=== PATIENT | female | born 1930 | race Caucasian/White ===

== ENCOUNTER 2016-06-30 18:29 | Emergency (ER) | payer MEDICARE, BC ==
[2016-06-30 18:36] VITALS: BP 147/66
--- NOTE | 2016-06-30 18:48 | EDM.PDOC ---
ED HPI Trauma - General Chief Complaint: Lower Extremity Injury/Pain Stated Complaint: Fall, left hip pain Time Seen by Provider: 06/30/16 18:40 Source: Reports: Patient, RN notes reviewed History Limitations: Reports: No limitations - History of Present Illness INITIAL COMMENTS - FREE TEXT/NARRATIVE: 85 year old female presents to the ED via [facility] The patient had reportedly gotten up from her chair after supper and fell. She has no complaints of chest pain or dizziness at the time. She had no LOC. She complaints of left hip pain after the fall. [facility] was called and transported the patient. The patient is confused at baseline and is a poor historian. No additional history is available. Allergies/ADRs: Allergies No Known Allergies Allergy (Verified 06/30/16 18:30) Home Medications: Ambulatory Orders Furosemide 40 mg PO DAILY 11/20/15 [Confirmed 06/30/16] Multivitamin [Daily Multiple Vitamin] 1 tab PO DAILY 11/20/15 [Confirmed ] Omeprazole 20 mg PO DAILY 11/20/15 [Confirmed 06/30/16] Ondansetron HCl [Zofran] 4 mg PO QID PRN 11/20/15 [Confirmed 06/30/16] Potassium Chloride 10 meq PO TID 11/20/15 [Confirmed 06/30/16] Sennosides [Senna] 17.2 mg PO DAILY PRN 11/20/15 [Confirmed 06/30/16] Sertraline [Zoloft] 25 mg PO DAILY 11/20/15 [Confirmed 06/30/16] glipiZIDE [Glipizide ER] 2.5 mg PO DAILY 11/20/15 [Confirmed 06/30/16] Acetaminophen 650 mg PO TID 11/21/15 [Confirmed 06/30/16] Sertraline [Zoloft] 100 mg PO DAILY 12/12/15 [Confirmed 06/30/16] Donepezil [Aricept] 10 mg PO DAILY 06/30/16 [Confirmed 06/30/16] LORazepam [Ativan] 1 mg PO ACBREAKFAST 06/30/16 [Confirmed 06/30/16] Memantine [Namenda Xr] 14 mg PO DAILY 06/30/16 [Confirmed 06/30/16] Psyllium Seed (With Sugar) [Natural Fiber Lax Powder] 1 tsp PO DAILY 06/30/16 [ Confirmed 06/30/16] Past Medical History HEENT History: Reports: Other (see below) Other HEENT History: dysphagia Cardiovascular History: Reports: Blood clots/VTE/DVT Respiratory History: Reports: PE Gastrointestinal History: Reports: GI bleed Genitourinary History: Reports: Other (see below) Other Genitourinary History: nocturia [employer]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: Musculoskeletal History: Reports: Other (see below) Other Musculoskeletal History: unsteady gait, lack of coordination, transfers with [facility] at [facility] Neurological History: Reports: CVA Psychiatric History: Reports: Dementia, Depression Endocrine/Metabolic History: Reports: Diabetes, type II, Other (see below) Other Endocrine/Metabolic History: hyercalcemia Hematologic History: Reports: Anemia, Anticoagulation therapy Oncologic (Cancer) History: Reports: Colon - Infectious Disease History Infectious Disease History: Reports: Chicken pox - Past Surgical History HEENT Surgical History: Reports: Other (see below) Other HEENT Surgeries/Procedures: eye surgery Other Cardiovascular Surgeries/Procedures: filter placed in right upper thigh for clots GI Surgical History: Reports: Cholecystectomy, Colonoscopy, Colostomy Other GI Surgeries/Procedures: Partial large bowel removal, resectioned and colostomy closed Female Surgical History: Reports: Hysterectomy Neurological Surgical History: Reports: Other (see below) Other Neurological Surgeries/Procedures: surdural hematoma removed in 2013 Oncologic Surgical History: Reports: None Social & Family History - Family History Family Medical History: Noncontributory - Tobacco Use Smoking Status *Q: Never Smoker Second Hand Smoke Exposure: No - Caffeine Use Caffeine Use: Reports: None - Alcohol Use Days Per Week of Alcohol Use: 0 - Recreational Drug Use Recreational Drug Use: No Review of Systems - Review of Systems Review Of Systems: See Below Respiratory: Reports: No Symptoms. Denies: Shortness of Breath, Cough Cardiovascular: Reports: no symptoms. Denies: chest pain, syncope GI/Abdominal: Reports: No symptoms. Denies: Abdominal pain Musculoskeletal: Reports: joint pain Neurological: Reports: Confusion Trauma Exam - Physical Exam Exam: See Below Exam Limited By: No limitations General Appearance: Reports: alert, WD/WN, no apparent distress Head: Reports: atraumatic, normocephalic Eyes: bilateral eye: EOMI, PERRL Neck: Reports: non-tender, full range of motion, normal alignment, normal inspection Respiratory Exam: Reports: no respiratory distress, lungs clear Cardiovascular: Reports: regular rate, rhythm GI/Abdominal: Reports: normal bowel sounds, soft, non tender Back: Reports: full range of motion. Denies: vertebral tenderness Extremities: Reports: bony-point tenderness (left hip), pain with movement Neurologic: Reports: no motor/sensory deficits, alert, other (confused, hard of hearing ) Course - Vital Signs Last Recorded V/S: Last Vital Signs Temp 99.1 F 06/30/16 18:30 Pulse 70 06/30/16 18:30 Resp 28 H 06/30/16 18:30 BP 147/66 H 06/30/16 18:30 Pulse Ox 92 L 06/30/16 18:30 - Orders/Labs/Meds Orders: Active Orders 24 hr Category Date Time Status EKG 12 Lead [EKG Documentation Completion] [RC] STAT Care 06/30/16 19:28 Active Insert Urinary Catheter [OM.PC] Q24H Care 06/30/16 19:30 Ordered Urinary Catheter Assessment [RC] ASDIRECTED Care 06/30/16 19:28 Active Hip Min 2V or 3V w Pelvis Lt [CR] Stat Exams 06/30/16 18:47 Taken CULTURE URINE [RM] Stat Lab 06/30/16 21:13 Ordered Levofloxacin/Dextrose 5%-Water [Levaquin in D5W 750 MG/ Med 06/30/16 20:41 Active 150 ML] 750 mg Premix Bag 1 bag IV ONETIME Sodium Chloride 0.9% [Normal Saline] 1,000 ml Med 06/30/16 19:27 Active IV ONETIME Medication Orders Sodium Chloride (Normal Saline) 1,000 mls @ 75 mls/hr IV ONETIME ONE Stop: 07/01/16 08:46 Last Admin: 06/30/16 19:43 Dose: 75 mls/hr Levofloxacin/Dextrose 750 mg/ (Premix) 150 mls @ 100 mls/hr IV ONETIME ONE Stop: 06/30/16 22:10 Last Admin: 06/30/16 21:13 Dose: 100 mls/hr Labs: Laboratory Tests 06/30/16 06/30/16 06/30/16 Range/Units 19:35 19:35 19:35 WBC 9.46 (3.98-10.04) K/mm3 RBC 4.49 (3.98-5.22) M/mm3 Hgb 14.3 (11.2-15.7) gm/L Hct 44.1 (34.1-44.9) % MCV 98.2 H (79.4-94.8) fl MCH 31.8 (25.6-32.2) pg MCHC 32.4 (32.2-35.5) g/dl RDW Std Deviation 55.0 H (36.4-46.3) fL Plt Count 166 L (182-369) K/mm3 MPV 10.9 (9.4-12.3) fl Neut % (Auto) 90.6 H (34.0-71.1) % Lymph % (Auto) 3.1 L (19.3-51.7) % [place] % (Auto) 5.6 (4.7-12.5) % Eos % (Auto) 0.3 L (0.7-5.8) Baso % (Auto) 0.1 (0.1-1.2) % Neut # (Auto) 8.57 H (1.56-6.13) K/mm3 Lymph # (Auto) 0.29 L (1.18-3.74) K/mm3 [place] # (Auto) 0.53 H (0.24-0.36) K/mm3 Eos # (Auto) 0.03 L (0.04-0.36) K/mm3 Baso # (Auto) 0.01 (0.01-0.08) K/mm3 Manual Slide Review Abnormal smear Sodium 143 (136-145) mEq/L Potassium 4.0 (3.5-5.1) mEq/L Chloride 107 (98-107) mEq/L Carbon Dioxide 25 (21-32) mEq/L Anion Gap 15.0 (5-15) BUN 22 H (7-18) mg/dL Creatinine 1.0 (0.55-1.02) mg/dL Est Cr Clr Drug Dosing 34.87 mL/min Estimated GFR (MDRD) 53 (>60) mL/min BUN/Creatinine Ratio 22.0 H (14-18) Glucose 137 H (83-115) mg/dL Calcium 10.6 H (8.5-10.1) mg/dL Total Bilirubin 0.7 (0.2-1.0) mg/dL AST 46 H (15-37) U/L ALT 59 (14-59) U/L Alkaline Phosphatase 178 H (46-116) U/L Troponin I < 0.017 (0.00-0.056) ng/mL Total Protein 7.3 (6.4-8.2) g/dl Albumin 3.8 (3.4-5.0) g/dl Globulin 3.5 gm/dL Albumin/Globulin Ratio 1.1 (1-2) Urine Color (Yellow) Urine Appearance (Clear) Urine pH (5.0-8.0) Ur Specific [place] (1.005-1.030) Urine Protein (Negative) Urine Glucose (UA) (Negative) Urine Ketones (Negative) Urine Occult Blood (Negative) Urine Nitrite (Negative) Urine Bilirubin (Negative) Urine Urobilinogen (0.2-1.0) Ur Leukocyte Esterase (Negative) Urine RBC (0-5) /hpf Urine WBC (0-5) /hpf Urine WBC Clumps (NOT SEEN) /hpf Ur Epithelial Cells (0-5) /hpf Amorphous Sediment (NOT SEEN) /hpf Urine Bacteria (FEW) /hpf Fine Granular Casts (0-5) /lpf Urine Mucus (FEW) /hpf 06/30/16 Range/Units 19:56 WBC (3.98-10.04) K/mm3 RBC (3.98-5.22) M/mm3 Hgb (11.2-15.7) gm/L Hct (34.1-44.9) % MCV (79.4-94.8) fl MCH (25.6-32.2) pg MCHC (32.2-35.5) g/dl RDW Std Deviation (36.4-46.3) fL Plt Count (182-369) K/mm3 MPV (9.4-12.3) fl Neut % (Auto) (34.0-71.1) % Lymph % (Auto) (19.3-51.7) % [place] % (Auto) (4.7-12.5) % Eos % (Auto) (0.7-5.8) Baso % (Auto) (0.1-1.2) % Neut # (Auto) (1.56-6.13) K/mm3 Lymph # (Auto) (1.18-3.74) K/mm3 [place] # (Auto) (0.24-0.36) K/mm3 Eos # (Auto) (0.04-0.36) K/mm3 Baso # (Auto) (0.01-0.08) K/mm3 Manual Slide Review Sodium (136-145) mEq/L Potassium (3.5-5.1) mEq/L Chloride (98-107) mEq/L Carbon Dioxide (21-32) mEq/L Anion Gap (5-15) BUN (7-18) mg/dL Creatinine (0.55-1.02) mg/dL Est Cr Clr Drug Dosing mL/min Estimated GFR (MDRD) (>60) mL/min BUN/Creatinine Ratio (14-18) Glucose (83-115) mg/dL Calcium (8.5-10.1) mg/dL Total Bilirubin (0.2-1.0) mg/dL AST (15-37) U/L ALT (14-59) U/L Alkaline Phosphatase (46-116) U/L Troponin I (0.00-0.056) ng/mL Total Protein (6.4-8.2) g/dl Albumin (3.4-5.0) g/dl Globulin gm/dL Albumin/Globulin Ratio (1-2) Urine Color Dark yellow (Yellow) Urine Appearance Cloudy H (Clear) Urine pH 6.0 (5.0-8.0) Ur Specific [place] 1.025 (1.005-1.030) Urine Protein 1+ H (Negative) Urine Glucose (UA) Negative (Negative) Urine Ketones Negative (Negative) Urine Occult Blood 1+ H (Negative) Urine Nitrite Positive H (Negative) Urine Bilirubin Negative (Negative) Urine Urobilinogen 0.2 (0.2-1.0) Ur Leukocyte Esterase 1+ H (Negative) Urine RBC 5-10 H (0-5) /hpf Urine WBC >100 H (0-5) /hpf Urine WBC Clumps Moderate (NOT SEEN) /hpf Ur Epithelial Cells 0-5 (0-5) /hpf Amorphous Sediment Not seen (NOT SEEN) /hpf Urine Bacteria Many H (FEW) /hpf Fine Granular Casts 10-20 H (0-5) /lpf Urine Mucus Many H (FEW) /hpf Meds: Medications Generic Name Dose Route Start Last Admin Trade Name Freq PRN Reason Stop Dose Admin Sodium Chloride 1,000 mls @ 75 mls/hr 06/30/16 19:27 06/30/16 19:43 Normal Saline IV 07/01/16 08:46 75 mls/hr ONETIME ONE Administration Levofloxacin/Dextrose 750 mg/ 150 mls @ 100 mls/hr 06/30/16 20:41 06/30/16 21 :13 Premix IV 06/30/16 22:10 100 mls/hr ONETIME ONE Administration Discontinued Medications Generic Name Dose Route Start Last Admin Trade Name Freq PRN Reason Stop Dose Admin Hydromorphone HCl 0.5 mg 06/30/16 19:27 06/30/16 19:43 Dilaudid IVPUSH 06/30/16 19:28 0.5 mg ONETIME ONE Administration - Re-Assessments/Exams Free Text/Narrative Re-Assessment/Exam: Left hip x-ray reveals intratrochanteric facture. Transfer process initiated with [facility] as Grace is a [facility] and we do not have ortho services available today. Orthopedic Surgeon Dr. Webb and Hospitalist Dr. Hernandez have accepted care of the patient. Grewal cath and IV placed. Labs are pending. Will transfer patient once labs are complete EKG reveals SR 70 bpm. No acute ischemic changes. LVH pattern. EKG read by Dr. Becerra 06/30/16 20:41 CBC reveals a normal WBC. CMP reveals mildly elevated liver enzymes and BUN. Bilirubin is normal. Likely due to volume depletion. Cath UA positive for UTI. Urine culture added. Will start IV Levaquin in the ED. [facility] one call updated on lab findings. [facility] will transport patient. Departure - Departure Time of Disposition: 20:54 Disposition: DC/Tfer to Acute Hospital 02 Condition: good Clinical Impression: UTI (urinary tract infection) Qualifiers: Urinary tract infection type: acute cystitis Hematuria presence: without hematuria Qualified Code(s): N30.00 - Acute cystitis without hematuria Hip fracture, left Qualifiers: Encounter type: initial encounter Fracture type: closed Qualified Code(s): S72.002A - Fracture of unspecified part of neck of left femur, initial encounter for closed fracture Referrals: Karthikeyan Barraza MD [Primary Care Provider] - Forms: ED Department Discharge - My Orders Last 24 Hours: My Active Orders 06/30/16 18:47 Hip Min 2V or 3V w Pelvis Lt [CR] Stat 06/30/16 19:27 Sodium Chloride 0.9% [Normal Saline] 1,000 ml IV ONETIME 06/30/16 19:28 EKG 12 Lead [EKG Documentation Completion] [RC] STAT Urinary Catheter Assessment [RC] ASDIRECTED 06/30/16 19:30 Insert Urinary Catheter [OM.PC] Q24H 06/30/16 20:41 Levofloxacin/Dextrose 5%-Water [Levaquin in D5W 750 MG/150 ML] 750 mg Premix Bag 1 bag IV ONETIME 06/30/16 21:13 CULTURE URINE [RM] Stat - Assessment/Plan Last 24 Hours: My Active Orders 06/30/16 18:47 Hip Min 2V or 3V w Pelvis Lt [CR] Stat 06/30/16 19:27 Sodium Chloride 0.9% [Normal Saline] 1,000 ml IV ONETIME 06/30/16 19:28 EKG 12 Lead [EKG Documentation Completion] [RC] STAT Urinary Catheter Assessment [RC] ASDIRECTED 06/30/16 19:30 Insert Urinary Catheter [OM.PC] Q24H 06/30/16 20:41 Levofloxacin/Dextrose 5%-Water [Levaquin in D5W 750 MG/150 ML] 750 mg Premix Bag 1 bag IV ONETIME 06/30/16 21:13 CULTURE URINE [RM] Stat
[2016-06-30] MEDS ORDERED: HYDROmorphone 0.5 MG/0.5 ML Syringe IVPUSH ONE ×2 (19:27→22:20)
[2016-06-30] MEDS ORDERED: Sodium Chloride 0.9% 1,000 ML IV ONE (19:27)
[2016-06-30] MEDS ORDERED: Levofloxacin/Dextrose 5%-Water 750 MG in Premix Bag 1 BAG IV ONE (20:41)
[2016-06-30] MEDS ORDERED: HYDROmorphone 0.5 MG/0.5 ML Syringe ONE (22:18)
[2016-06-30] MEDS ORDERED: Ondansetron 4 MG/2 ML SDV IVPUSH ONE (22:21)
[2016-06-30] MEDS ORDERED: Ondansetron 4 MG/2 ML SDV ONE (22:23)
--- NOTE | 2016-07-01 10:32 | CR ---
Pelvis and left hip: AP view of the pelvis was obtained as well as AP and lateral views of the left hip. Comparison: No previous study. Intertrochanteric fracture is noted within the left hip. Severe joint space narrowing is seen within both hips. Bony structures are osteoporotic. No additional fracture or other bony abnormality is seen. Impression: 1. Intertrochanteric fracture within the left hip. 2. Other incidental findings. Diagnostic code #3
== END 2016-06-30 22:39 ==
LOC: JD.ED 18:29
DX: S72.142A Displaced intertrochanteric fracture of left femur, initial encounter for closed fracture (principal); N30.00 Acute cystitis without hematuria; F32.9 Major depressive disorder, single episode, unspecified; E11.9 Type 2 diabetes mellitus without complications; F03.90 Unspecified dementia, unspecified severity, without behavioral disturbance, psychotic disturbance, mood disturbance, and anxiety; Z86.2 Personal history of diseases of the blood and blood-forming organs and certain disorders involving the immune mechanism; Z86.73 Personal history of transient ischemic attack (TIA), and cerebral infarction without residual deficits; Z90.49 Acquired absence of other specified parts of digestive tract; Z90.710 Acquired absence of both cervix and uterus; W19.XXXA Unspecified fall, initial encounter
CPT/HCPCS: 36415; 51702; 73502; 80053; 81001; 84484; 85025; 87086; 87088; 87186; 93005; 96361; 96365; 96375; 99285; J1170; J1956; J2405; J7040

== ENCOUNTER 2016-08-11 14:24 | Emergency (ER) | payer MEDICARE, BC ==
[2016-08-11] MEDS ORDERED: Sodium Chloride 0.9% 10 ML Syringe FLUSH PRN (15:14)
[2016-08-11] MEDS ORDERED: LORazepam 2 MG/ML MDV IVPUSH ONE (15:15)
[2016-08-11] MEDS ORDERED: fentaNYL 100 MCG/2 ML SDV IVPUSH ONE (15:56)
--- NOTE | 2016-08-11 15:59 | EDM.PDOC ---
ED HPI GENERAL MEDICAL PROBLEM - General Chief Complaint: General Stated Complaint: Fall Time Seen by Provider: 08/11/16 15:00 Source of Information: Reports: Patient, RN Notes Reviewed History Limitations: Reports: No Limitations - History of Present Illness INITIAL COMMENTS - FREE TEXT/NARRATIVE: 85 year old female sent to the ED for evaluation after a fall 3 days ago (on ). She was initially evaluated in the clinic and had a left wrist xray performed and a CT was then recommended. The patient now has bruising to the left face which is also of concern. The patient has a history of dementia and is combative at times. skilled nursing reports increasing confusion. She will likely need sedation for CT scans. The patient is unable to give any history. The only information available is [facility]. Will obtain records from [facility]. - Related Data Allergies Allergy/AdvReac Type Severity Reaction Status Date / Time No Known Allergies Allergy Verified 06/30/16 18:30 Home Meds: Home Meds Furosemide 40 mg PO DAILY 11/20/15 [History] Multivitamin [Daily Multiple Vitamin] 1 tab PO DAILY 11/20/15 [History] Omeprazole 20 mg PO DAILY 11/20/15 [History] Ondansetron HCl [Zofran] 4 mg PO QID PRN 11/20/15 [History] Potassium Chloride 10 meq PO TID 11/20/15 [History] Sennosides [Senna] 17.2 mg PO DAILY PRN 11/20/15 [History] Sertraline [Zoloft] 25 mg PO DAILY 11/20/15 [History] glipiZIDE [Glipizide ER] 2.5 mg PO DAILY 11/20/15 [History] Acetaminophen 650 mg PO TID 11/21/15 [History] Sertraline [Zoloft] 100 mg PO DAILY 12/12/15 [History] Donepezil [Aricept] 10 mg PO DAILY 06/30/16 [History] LORazepam [Ativan] 1 mg PO ACBREAKFAST 06/30/16 [History] Memantine [Namenda Xr] 14 mg PO DAILY 06/30/16 [History] Psyllium Seed (With Sugar) [Natural Fiber Lax Powder] 1 tsp PO DAILY 06/30/16 [ History] Past Medical History HEENT History: Reports: Other (See Below) Other HEENT History: dysphagia Cardiovascular History: Reports: Blood Clots/VTE/DVT Respiratory History: Reports: PE Gastrointestinal History: Reports: GI Bleed Genitourinary History: Reports: Other (See Below) Other Genitourinary History: nocturia 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: Musculoskeletal History: Reports: Other (See Below) Other Musculoskeletal History: unsteady gait, lack of coordination, transfers [facility] barbara lift [facility] Neurological History: Reports: CVA Psychiatric History: Reports: Dementia, Depression Endocrine/Metabolic History: Reports: Diabetes, Type II Other Endocrine/Metabolic History: hyercalcemia Hematologic History: Reports: Anemia, Anticoagulation Therapy Oncologic (Cancer) History: Reports: Colon - Infectious Disease History Infectious Disease History: Reports: Chicken Pox - Past Surgical History HEENT Surgical History: Reports: Other (See Below) Oncologic Surgical History: Reports: None Social & Family History - Family History Family Medical History: Noncontributory - Tobacco Use Smoking Status *Q: Never Smoker Second Hand Smoke Exposure: No - Caffeine Use Caffeine Use: Reports: Coffee - Alcohol Use Days Per Week of Alcohol Use: 0 - Recreational Drug Use Recreational Drug Use: No ED ROS GENERAL - Review of Systems Review Of Systems: Unable To Obtain (due to underlying dementia) ED EXAM, GENERAL - Physical Exam Exam: See Below Exam Limited By: Combative/Threatening General Appearance: Alert, No Apparent Distress Eye Exam: Bilateral Eye: EOMI, PERRL Ears: Normal External Exam, Normal Canal, Hearing Grossly Normal, Normal TMs Head: Facial Swelling, Facial Tenderness (left), Other (bruising to left face with possible orbital deformity ) Neck: Normal Inspection, Supple, Non-Tender, Full Range of Motion, Other ( freely moves neck, no pain with palpation of the c-spine. ) Respiratory/Chest: No Respiratory Distress, Lungs Clear, Normal Breath Sounds, Chest Non-Tender Cardiovascular: Regular Rate, Rhythm, No Murmur, Other (1-2+ bilateral pitting edema to lower extremities.) GI/Abdominal: Normal Bowel Sounds, Soft, Non-Tender Back Exam: Normal Inspection, Full Range of Motion. No: Vertebral Tenderness Extremities: Other (bruising and tenderness noted to left wrist, full ROM of upper extremities. Bruising noted to anterior left shoulder but patient freely moves the shoulder joint with no problems) Neurological: Alert, Confused Psychiatric: Other (flat affect, combative, uncooperative ) Skin Exam: Warm, Dry, Intact Course - Vital Signs Last Recorded V/S: Last Vital Signs Temp Pulse 63 08/11/16 17:44 Resp 20 08/11/16 17:44 BP 135/64 08/11/16 17:44 Pulse Ox 96 08/11/16 17:44 - Orders/Labs/Meds Orders: Active Orders 24 hr Category Date Time Status Peripheral IV Care [RC] . DIRECTED Care 08/11/16 15:15 Active Wrist wo Cont Lt [CT] Stat Exams 08/11/16 15:25 Taken Sodium Chloride 0.9% [Saline Flush] Med 08/11/16 15:14 Active 10 ml FLUSH ASDIRECTED PRN Peripheral IV Insertion Adult [OM.PC] Stat Oth 08/11/16 15:14 Ordered Medication Orders Sodium Chloride (Saline Flush) 10 ml FLUSH ASDIRECTED PRN PRN Reason: Keep Vein Open Last Admin: 08/11/16 15:39 Dose: 10 ml Labs: Laboratory Tests 08/11/16 08/11/16 Range/Units 16:05 16:05 WBC 9.20 (3.98-10.04) K/mm3 RBC 3.90 L (3.98-5.22) M/mm3 Hgb 12.2 (11.2-15.7) gm/L Hct 38.7 (34.1-44.9) % MCV 99.2 H (79.4-94.8) fl MCH 31.3 (25.6-32.2) pg MCHC 31.5 L (32.2-35.5) g/dl RDW Std Deviation 52.5 H (36.4-46.3) fL Plt Count 304 (182-369) K/mm3 MPV 10.3 (9.4-12.3) fl Neut % (Auto) 69.7 (34.0-71.1) % Lymph % (Auto) 18.9 L (19.3-51.7) % [place] % (Auto) 8.4 (4.7-12.5) % Eos % (Auto) 2.3 (0.7-5.8) Baso % (Auto) 0.3 (0.1-1.2) % Neut # (Auto) 6.41 H (1.56-6.13) K/mm3 Lymph # (Auto) 1.74 (1.18-3.74) K/mm3 [place] # (Auto) 0.77 H (0.24-0.36) K/mm3 Eos # (Auto) 0.21 (0.04-0.36) K/mm3 Baso # (Auto) 0.03 (0.01-0.08) K/mm3 Sodium 146 H (136-145) mEq/L Potassium 3.3 L (3.5-5.1) mEq/L Chloride 109 H (98-107) mEq/L Carbon Dioxide 29 (21-32) mEq/L Anion Gap 11.3 (5-15) BUN 17 (7-18) mg/dL Creatinine 0.9 (0.55-1.02) mg/dL Est Cr Clr Drug Dosing TNP Estimated GFR (MDRD) 59 (>60) mL/min BUN/Creatinine Ratio 18.9 H (14-18) Glucose 121 H (83-115) mg/dL Calcium 10.4 H (8.5-10.1) mg/dL Total Bilirubin 0.4 (0.2-1.0) mg/dL AST 13 L (15-37) U/L ALT 16 (14-59) U/L Alkaline Phosphatase 171 H (46-116) U/L Total Protein 6.8 (6.4-8.2) g/dl Albumin 2.9 L (3.4-5.0) g/dl Globulin 3.9 gm/dL Albumin/Globulin Ratio 0.7 L (1-2) Meds: Medications Generic Name Dose Route Start Last Admin Trade Name Freq PRN Reason Stop Dose Admin Sodium Chloride 10 ml 08/11/16 15:14 08/11/16 15:39 Saline Flush FLUSH 10 ml ASDIRECTED PRN Administration Keep Vein Open Discontinued Medications Generic Name Dose Route Start Last Admin Trade Name Freq PRN Reason Stop Dose Admin Fentanyl 50 mcg 08/11/16 15:56 08/11/16 16:15 Sublimaze IVPUSH 08/11/16 15:57 50 mcg ONETIME ONE Administration Lorazepam 0.5 mg 08/11/16 15:15 08/11/16 15:35 Ativan IVPUSH 08/11/16 15:16 0.5 mg ONETIME ONE Administration - Re-Assessments/Exams Free Text/Narrative Re-Assessment/Exam: Obtained records from [facility]. The patient was seen on 08/08/16 for lesion to buttocks. There is no mention of the patient's fall, however an x-ray of the left wrist was obtained. Radiologist report impression as follows: diffuse demineralization is noted making evaluation somewhat difficult. Further evaluation with computed tomography is recommended if fracture is suspected. Will obtain wrist CT today. There is no mention in the providers report of facial deformity or bruising. Due to severity of bruising and questionable orbital deformity, will obtain CT of head, maxillofacial bones and neck. No additional injury identified on physical exam. The patient is uncooperative with cares and assessment. Obtaining vital signs has been difficult. Will place IV and medicate with Ativan and Fentanyl. Will start slow to avoid over sedation. Will obtain CTs when patient is calm and cooperative. 08/11/16 18:[address] Brown. CTs of head and neck are negative for acute findings except for maxillofacial findings. Maxillofacial CT impression as follows: 1. fracture involving the anterior and posterolateral left maxillary sinus sierra. Nondisplaced fracture within the inferior left orbital floor. Nondisplaced fracture in 2 places within the anterior left zygomatic arch. 2. blood felt to be present within the left maxillary sinus I called and spoke to Maxillofacial specialist programmer analyst consultant at [facility], Dr. Gallegos, who recommended the followin. repeat CT in 2 weeks to check for displacement of the tripod fracture 2. If there is displacement on repeat CT, she will need to see Dr. Gallegos and likely will need surgery 3. Soft diet 4. He does not recommend antibiotics 5. Optho consult if she has a subconjcutival hemorrhage CT of left wrist impression: nondisplaced distal radius fracture. The patient was placed in a left short arm volar splint. She tolerated the procedure well. CMS intact prior to and after splint placement. Will refer to Dr. Espino for follow-up of wrist fracture. She has [place] prescribed to her [facility] the [facility] The patient will be [facility] back [facility] the [facility]. Will send records to Dr. Gallegos and Dr. Barraza. Departure - Departure Time of Disposition: 18:25 Disposition: Home, Self-Care 01 Condition: good Clinical Impression: Distal radius fracture, left Qualifiers: Encounter type: initial encounter Fracture type: closed Fracture morphology: unspecified fracture morphology Qualified Code(s): S52.502A - Unspecified fracture of the lower end of left radius, initial encounter for closed fracture Closed fracture of tripod Qualifiers: Encounter type: initial encounter Qualified Code(s): S02.402A - Zygomatic fracture, unspecified side, initial encounter for closed fracture Dementia Qualifiers: Dementia type: unspecified type Dementia behavioral disturbance: with behavioral disturbance Qualified Code(s): F03.91 - Unspecified dementia with behavioral disturbance Fall Qualifiers: Encounter type: initial encounter Qualified Code(s): W19.XXXA - Unspecified fall, initial encounter - Discharge Information Instructions: Eye Contusion, [id number], Facial or Scalp Contusion, Easy-to- Read, Radial Head Fracture, [id number] Referrals: Karthikeyan Barraza MD [Primary Care Provider] - Forms: ED Department Discharge Additional Instructions: Tripod fracture of the face: 1. Follow-up with Dr. Barraza next week for recheck 2. Repeat CT in 2 weeks to check for displacement of the tripod fracture as recommended by Maxillofacial specialist Dr. Gallegos at [facility] 3. If there is displacement on repeat CT in two weeks, she will need to see Dr. Gallegos and likely will need surgery 4. Strict soft diet 5. See Polysomnographic Technologist next week Distal radius fracture 1. Splint at all times 2. Do not get splint wet 3. Follow-up with Orhtopedic Surgeon Dr. Espino next week for recheck 4. Rest, ice and elevate 5. Sling as tolerated Pain management: Hydrocodone/apap as prescribed Tylenol as needed for less severe pain - My Orders Last 24 Hours: My Active Orders 08/11/16 15:14 Sodium Chloride 0.9% [Saline Flush] 10 ml FLUSH ASDIRECTED PRN Peripheral IV Insertion Adult [OM.PC] Stat 08/11/16 15:15 Peripheral IV Care [RC] . DIRECTED 08/11/16 15:25 Wrist wo Cont Lt [CT] Stat - Assessment/Plan Last 24 Hours: My Active Orders 08/11/16 15:14 Sodium Chloride 0.9% [Saline Flush] 10 ml FLUSH ASDIRECTED PRN Peripheral IV Insertion Adult [OM.PC] Stat 08/11/16 15:15 Peripheral IV Care [RC] . DIRECTED 08/11/16 15:25 Wrist wo Cont Lt [CT] Stat
--- NOTE | 2016-08-11 17:21 | CT ---
CT cervical spine Technique: Multiple axial sections through the cervical spine were obtained from above C1 inferiorly to the bottom of T2. Reconstructed sagittal and coronal images were reviewed. Findings: Mild spondylolisthesis is noted at C5-C6 due to degenerative apophyseal change. Other degenerative apophyseal change is noted throughout the cervical spine. Mild disc space narrowing is noted at C6-C7. Anterior osteophytes are seen from C4-C5 through C6-C7, most prominent at C6-C7. Degenerative change also noted between the dens and anterior arch of C1. No fracture is identified. Severe bilateral neural foraminal stenosis is noted at C3-C4 on both sides. Mild bilateral neural foraminal stenosis is noted C5-C6. No bony central canal stenosis is seen. Diffuse degenerative change is seen within the uncovertebral joints. Impression: 1. Diffuse degenerative change. 2. No acute fracture is appreciated. Diagnostic code #2
--- NOTE | 2016-08-11 17:25 | CT ---
CT facial bones Technique: Multiple axial sections were obtained through the facial bones. Reconstructed coronal and sagittal images were reviewed. Findings: Fracture is identified within the anterior left maxillary sinus with slight inward displacement. Fracture identified within the left zygomatic arch in 2 places anteriorly. Slightly displaced fracture within the posterolateral wall of the left maxillary sinus. Nondisplaced fracture also noted within the inferior orbital floor with no displacement of intraocular components. Medial and lateral orbital sierra are intact. Degenerative change noted within the temporal mandibular joints. No mandible fracture is seen. No nasal bone fracture is identified. Fluid noted within left maxillary sinus presumably representing blood. Impression: 1. Fracture involving the anterior and posterolateral left maxillary sinus sierra. Nondisplaced fracture within the inferior left orbital floor. Nondisplaced fracture in 2 places within the anterior left zygomatic arch. 2. Blood felt to be present within left maxillary sinus. 3. Incidental degenerative change within both temporomandibular joints. Diagnostic code #3
--- NOTE | 2016-08-11 17:29 | CT ---
Head CT Technique: Multiple axial sections through the brain were obtained. Intravenous contrast was not utilized. Comparison: Previous head CT exam of 09/08/13. Findings: Ventricles along with basal cisterns and sulci over the convexities are moderately prominent. Previous left-sided craniotomy is noted with additional kirstie holes. Slightly widened subdural space which appears chronic noted overlying the right frontal lobe. Minimal diminished density is noted within the periventricular white matter compatible with small vessel ischemic demyelination change. Atherosclerotic calcification is noted within the carotid siphon. No evidence of intracranial hemorrhage. No midline shift or mass effect is seen. Bone window settings shows no acute calvarial abnormality. Fractures within the left side of the maxillary sinus and zygomatic arch are again noted. Fluid is seen within the right side of the sphenoid sinus presumably from the maxillary sinus trauma. Blood is seen within left maxillary sinus. Impression: 1. Senescent change as noted above. Previous craniotomy and kirstie holes are noted. No acute intracranial abnormality is identified. 2. Facial bone fractures as described on facial bone exam. Diagnostic code #3
[2016-08-11 19:37] VITALS: BP 138/67
--- NOTE | 2016-08-12 09:27 | CT ---
CT left wrist Technique: Multiple axial sections through the left wrist are obtained. Reconstructed coronal and sagittal images were reviewed. Findings: Mild diffuse joint space narrowing is noted within the carpal bones. Diffuse osteopenia is present. Fracture is identified within the distal radius best seen on the lateral reconstructed views. No displacement is seen. No additional fracture or other abnormality is appreciated. Impression: 1. Nondisplaced distal left radial fracture. 2. Diffuse joint space narrowing within the carpal bones and osteopenia. Diagnostic code #3 MTDD
== END 2016-08-11 19:20 | disposition home or self-care (01) ==
LOC: JD.ED 14:24
DX: S52.502A Unspecified fracture of the lower end of left radius, initial encounter for closed fracture (principal); E11.9 Type 2 diabetes mellitus without complications; Z79.01 Long term (current) use of anticoagulants; Z79.899 Other long term (current) drug therapy; Z79.84 Long term (current) use of oral hypoglycemic drugs; W19.XXXA Unspecified fall, initial encounter; F03.91 Unspecified dementia, unspecified severity, with behavioral disturbance
CPT/HCPCS: 29125; 36415; 70450; 70486; 72125; 73200; 80053; 85025; 96374; 96375; 99285; J2060; J3010; J7050; 99284

== ENCOUNTER 2016-09-13 17:11 | Emergency (ER) | payer MEDICARE, BC ==
[2016-09-13] MEDS ORDERED: Sodium Chloride 0.9% 10 ML Syringe FLUSH PRN (17:22)
[2016-09-13 17:23] VITALS: BP 142/86
--- NOTE | 2016-09-13 18:36 | CT ---
Head CT Technique: Multiple axial sections through the brain were obtained. Intravenous contrast was not utilized. Comparison: Previous head CT study of 08/11/16. Findings: Ventricles along with basal cisterns and sulci over the convexities are moderately prominent. Previous craniotomy on the left side as well as bilateral kirstie holes. Diminished density is noted within the periventricular and subcortical white matter compatible with small vessel ischemic demyelination change. No evidence of intracranial hemorrhage. No midline shift or mass effect is seen. Bone window settings shows no acute calvarial abnormality. Visualized sinuses shows minimal density within the right posterior ethmoid sinus felt to represent small retention cyst. Minimal fluid is seen within sphenoid sinus. Impression: 1. Minimal fluid within the sphenoid sinus. This is seen on previous exam and appears without change. 2. Senescent change as described above. Previous craniotomy and kirstie holes. 3. No acute intracranial abnormality is appreciated. Diagnostic code #3
--- NOTE | 2016-09-13 19:59 | EDM.PDOC ---
ED HPI GENERAL MEDICAL PROBLEM - General Chief Complaint: Lower Extremity Injury/Pain Stated Complaint: [facility] Time Seen by Provider: 09/13/16 17:13 Source of Information: Reports: Jail Records, Other (retirement staff) History Limitations: Reports: Altered Mental Status (meir has dementia; orientated to person and ) - History of Present Illness INITIAL COMMENTS - FREE TEXT/NARRATIVE: 85-year-old female presents via the [facility] ambulance service for evaluation treatment of left hip pain. The patient had an unwitnessed fall while at [facility]. She was found laying on her left side and complaining of left hip pain. The patient is pleasantly demented and is unable to provide much history. She correctly states her name and date of but is unable to further appropriately vocalize any additional information. I discussed the patient with the [facility] charge nurse. She reports to me that they found the patient lying on her left side. States that her call when was going off and the FINISHER [employer]CREWD[employer] was present in the area so they do not feel she was on the ground for long. They deny any recent fevers, vomiting or diarrhea. They report that she is normally transfers with assistance. Patient is a DNR, DNI. Reviewed the patient's records show that she had a left hip fracture in June. This was repaired in [place]. According to the long-term she has been in PT. - Related Data Allergies Allergy/AdvReac Type Severity Reaction Status Date / Time No Known Allergies Allergy Verified 09/13/16 17:23 Home Meds: Home Meds Furosemide 40 mg PO DAILY 11/20/15 [History] Multivitamin [Daily Multiple Vitamin] 1 tab PO DAILY 11/20/15 [History] Omeprazole 20 mg PO DAILY 11/20/15 [History] Ondansetron HCl [Zofran] 4 mg PO QID PRN 11/20/15 [History] Potassium Chloride 10 meq PO TID 11/20/15 [History] Sennosides [Senna] 17.2 mg PO DAILY PRN 11/20/15 [History] Sertraline [Zoloft] 25 mg PO DAILY 11/20/15 [History] glipiZIDE [Glipizide ER] 2.5 mg PO DAILY 11/20/15 [History] Acetaminophen 650 mg PO TID 11/21/15 [History] Sertraline [Zoloft] 100 mg PO DAILY 12/12/15 [History] Donepezil [Aricept] 10 mg PO DAILY 06/30/16 [History] LORazepam [Ativan] 1 mg PO ACBREAKFAST 06/30/16 [History] Memantine [Namenda Xr] 14 mg PO DAILY 06/30/16 [History] Psyllium Seed (With Sugar) [Natural Fiber Lax Powder] 1 tsp PO DAILY 06/30/16 [ History] Past Medical History HEENT History: Reports: Other (See Below) Other HEENT History: dysphagia Cardiovascular History: Reports: Blood Clots/VTE/DVT Respiratory History: Reports: PE Gastrointestinal History: Reports: GI Bleed Genitourinary History: Reports: Other (See Below) Other Genitourinary History: nocturia CLINIC DIRECTOR History: Reports: Musculoskeletal History: Reports: Other (See Below) Other Musculoskeletal History: unsteady gait, lack of coordination, transfers with barbara lift at long-term Neurological History: Reports: CVA Psychiatric History: Reports: Dementia, Depression Endocrine/Metabolic History: Reports: Diabetes, Type II Other Endocrine/Metabolic History: hyercalcemia Hematologic History: Reports: Anemia, Anticoagulation Therapy Oncologic (Cancer) History: Reports: Colon - Infectious Disease History Infectious Disease History: Reports: Chicken Pox - Past Surgical History HEENT Surgical History: Reports: Other (See Below) Oncologic Surgical History: Reports: None Social & Family History - Family History Family Medical History: Noncontributory - Tobacco Use Smoking Status *Q: Never Smoker Second Hand Smoke Exposure: No - Caffeine Use Caffeine Use: Reports: None - Alcohol Use Days Per Week of Alcohol Use: 0 - Recreational Drug Use Recreational Drug Use: No Review of Systems - Review of Systems Review Of Systems: See Below (obtained from long-term staff) Constitutional: Denies: Fever GI/Abdominal: Denies: Diarrhea, Vomiting Musculoskeletal: Reports: Other (left hip pain) ED EXAM, GENERAL - Physical Exam Exam: See Below Exam Limited By: No Limitations General Appearance: Alert, WD/WN, No Apparent Distress Eye Exam: Bilateral Eye: PERRL Ears: Normal External Exam Nose: Normal Inspection Throat/Mouth: Normal Inspection, Normal Lips, Normal Voice, No Airway Compromise Head: Atraumatic, Normocephalic Neck: Normal Inspection, Supple, Non-Tender, Full Range of Motion Respiratory/Chest: No Respiratory Distress, Lungs Clear, Normal Breath Sounds, Chest Non-Tender Cardiovascular: Normal Peripheral Pulses, Regular Rate, Rhythm, No Murmur GI/Abdominal: Soft, Non-Tender Back Exam: Normal Inspection Extremities: Normal Inspection, Other (Pain with rotation of the left hip.; left wrist is in a removable splint) Neurological: Alert, Confused (Pleasantly confused.) Psychiatric: Normal Affect, Normal Mood Skin Exam: Warm, Dry, Normal Color EKG INTERPRETATION EKG Date: 09/13/16 Time: 17:35 Rhythm: NSR Rate (Beats/Min): 61 [place]: Normal P-Wave: Present QRS: Normal ST-T: Normal QT: Normal EKG Interpretation Comments: NSR at 61 bpm. Left ventricular hypertrophy. Reviewed by myself and Dr. Becerra. Course - Vital Signs Last Recorded V/S: Last Vital Signs Temp 37.1 C 09/13/16 17:17 Pulse 71 09/13/16 17:17 Resp 14 09/13/16 17:17 BP 142/86 H 09/13/16 17:17 Pulse Ox 91 L 09/13/16 17:17 - Orders/Labs/Meds Orders: Active Orders 24 hr Category Date Time Status Cardiac Monitoring [RC] . DIRECTED Care 09/13/16 17:22 Active EKG 12 Lead [EKG Documentation Completion] [RC] STAT Care 09/13/16 17:22 Active Peripheral IV Care [RC] . DIRECTED Care 09/13/16 17:22 Active Chest 1V Frontal [CR] Stat Exams 09/13/16 17:22 Taken Hip Min 2V or 3V w Pelvis Lt [CR] Stat Exams 09/13/16 17:22 Taken Peripheral IV Insertion Adult [OM.PC] Routine Oth 09/13/16 17:22 Ordered Labs: Laboratory Tests 09/13/16 09/13/16 09/13/16 Range/Units 17:45 17:45 18:30 WBC 6.90 (3.98-10.04) K/mm3 RBC 4.06 (3.98-5.22) M/mm3 Hgb 12.8 (11.2-15.7) gm/L Hct 39.8 (34.1-44.9) % MCV 98.0 H (79.4-94.8) fl MCH 31.5 (25.6-32.2) pg MCHC 32.2 (32.2-35.5) g/dl RDW Std Deviation 53.2 H (36.4-46.3) fL Plt Count 262 (182-369) K/mm3 MPV 10.6 (9.4-12.3) fl Neutrophils % (Manual) 58 (40-60) % Band Neutrophils % 1 (0-10) % Lymphocytes % (Manual) 31 (20-40) % Atypical Lymphs % 0 % Monocytes % (Manual) 8 (2-10) % Eosinophils % (Manual) 2 (0.7-5.8) % Basophils % (Manual) 0 L (0.1-1.2) Platelet Estimate Adequate RBC Morph Comment Normal Sodium 141 (136-145) mEq/L Potassium 3.5 (3.5-5.1) mEq/L Chloride 104 (98-107) mEq/L Carbon Dioxide 30 (21-32) mEq/L Anion Gap 10.5 (5-15) BUN 14 (7-18) mg/dL Creatinine 0.9 (0.55-1.02) mg/dL Est Cr Clr Drug Dosing 37.10 mL/min Estimated GFR (MDRD) 59 (>60) mL/min BUN/Creatinine Ratio 15.6 (14-18) Glucose 117 H (83-115) mg/dL Calcium 10.3 H (8.5-10.1) mg/dL Total Bilirubin 0.3 (0.2-1.0) mg/dL AST 18 (15-37) U/L ALT 24 (14-59) U/L Alkaline Phosphatase 177 H (46-116) U/L Troponin I < 0.017 (0.00-0.056) ng/mL Total Protein 7.1 (6.4-8.2) g/dl Albumin 3.3 L (3.4-5.0) g/dl Globulin 3.8 gm/dL Albumin/Globulin Ratio 0.9 L (1-2) Urine Color Light yellow (Yellow) Urine Appearance Clear (Clear) Urine pH 7.0 (5.0-8.0) Ur Specific [place] 1.015 (1.005-1.030) Urine Protein Negative (Negative) Urine Glucose (UA) Negative (Negative) Urine Ketones Negative (Negative) Urine Occult Blood Negative (Negative) Urine Nitrite Negative (Negative) Urine Bilirubin Negative (Negative) Urine Urobilinogen 0.2 (0.2-1.0) Ur Leukocyte Esterase Negative (Negative) Urine RBC 0-5 (0-5) /hpf Urine WBC 0-5 (0-5) /hpf Ur Epithelial Cells 0-5 (0-5) /hpf Urine Bacteria Few (FEW) /hpf Urine Mucus Not seen (FEW) /hpf Meds: Medications Discontinued Medications Generic Name Dose Route Start Last Admin Trade Name Kalie PRN Reason Stop Dose Admin Sodium Chloride 10 ml 09/13/16 17:22 09/13/16 17:30 Saline Flush FLUSH 10 ml ASDIRECTED PRN Administration Keep Vein Open - Radiology Interpretation Free Text/Narrative:: CT of the head without contrast impression per Dr. Brown: 1. Minimal fluid within the sphenoid sinus. This is seen on previous exam and appears without change. 2. Senescent change as described. Previous craniotomy and kirstie holes. 3. No acute intracranial abnormality. chest xray shows no acute intrathroracic process. - Re-Assessments/Exams Free Text/Narrative Re-Assessment/Exam: 09/13/16 19:42 Discussed the case with Dr. Becerra. Reviewed the left hip xray no new fracture appreciated. Discussed obtaining a CT, however, with her hardware in place, Artifact felt to be too great to appreciate any acute fractures. Labs returned. White blood cell count 6.90, hemoglobin 12.8 and platelets are 262. sodium 141, potassium 3.5 and chloride 104. Anion gap 10.5. Glucose 117. Creatinine 0.9. Troponin within normal limits at less than 0.017. UA is negative for any blood, protein, ketones, nitrites and leukocytes. I reviewed the lab, EKG and imaging results with the patient's son Gianluca who is now present in the ER. He reports to me that she has been complaining of left hip pain for several days. He visits her every evening. He states he has requested that they follow up with Dr. Barraza for pain medication adjustment. He is unsure if this is been adjusted. He states that he has not noticed any change in her baseline or any other concerning symptoms. Gianluca reports that she was previously in physical therapy but she had a fall and broke her left wrist. She has been unable to partake in physical therapy due to not being able to utilize her left wrist. Plan is to restart physical therapy in 2 weeks. Will discharge back to the long-term. Discharge instructions his documented. Departure - Departure Time of Disposition: 19:57 Disposition: Home, Self-Care 01 Condition: Fair Clinical Impression: Fall, Left hip pain - Discharge Information Instructions: Fall Prevention in the Home, [id number], Hip Pain Referrals: Karthikeyan Barraza MD [Primary Care Provider] - Forms: ED Department Discharge Additional Instructions: Follow-up with Dr. Barraza this week for further pain management. Continue with current plan of care and current medications. Patient has prn Tylenol and [place] as needed for pain relief. Please return to the ER if her symptoms change or worsen. - My Orders Last 24 Hours: My Active Orders 09/13/16 17:22 Cardiac Monitoring [RC] . DIRECTED EKG 12 Lead [EKG Documentation Completion] [RC] STAT Peripheral IV Care [RC] . DIRECTED Chest 1V Frontal [CR] Stat Hip Min 2V or 3V w Pelvis Lt [CR] Stat Peripheral IV Insertion Adult [OM.PC] Routine - Assessment/Plan Last 24 Hours: My Active Orders 09/13/16 17:22 Cardiac Monitoring [RC] . DIRECTED EKG 12 Lead [EKG Documentation Completion] [RC] STAT Peripheral IV Care [RC] . DIRECTED Chest 1V Frontal [CR] Stat Hip Min 2V or 3V w Pelvis Lt [CR] Stat Peripheral IV Insertion Adult [OM.PC] Routine
--- NOTE | 2016-09-14 12:13 | CR ---
Chest: Frontal view of the chest was obtained. Comparison: Previous chest x-ray of 12/11/15. Heart is mildly enlarged. Tortuous thoracic aorta is seen. Lungs are clear with no acute infiltrates. Mild scoliosis and degenerative change is seen within the spine. Surgical clips are seen within the upper abdomen. Inferior vena cava filter is partially seen. Impression: 1. Heart size is slightly more prominent than on prior exam. 2. Other incidental findings. Nothing acute is otherwise seen on frontal chest x-ray. Diagnostic code #2
--- NOTE | 2016-09-14 13:36 | CR ---
Pelvis and left hip: AP view of the pelvis was obtained as well as AP and lateral views of the left hip. Comparison: No previous study. Old left hip fracture is seen. Orthopedic hardware is in place. Joint space narrowing is seen within both hips, worse on the left side. Slightly sclerotic line is seen within the subcapital region of the right hip most likely due to degenerative spurring. Mild disc space narrowing partially visualized within the lumbar spine. Bony structures are osteoporotic. Impression: 1. Osteoporosis, old left hip fracture and degenerative change. 2. Nothing acute is appreciated. Diagnostic code #2
== END 2016-09-13 20:40 | disposition home or self-care (01) ==
LOC: JD.ED 17:11
DX: M25.552 Pain in left hip (principal); F32.9 Major depressive disorder, single episode, unspecified; E11.9 Type 2 diabetes mellitus without complications; Z79.899 Other long term (current) drug therapy; W19.XXXA Unspecified fall, initial encounter; Y92.129 Unspecified place in nursing home as the place of occurrence of the external cause; R47.02 Dysphasia
CPT/HCPCS: 36415; 70450; 71010; 73502; 80053; 81001; 84484; 85025; 93005; 99285; J7050; P9612; 99284

== ENCOUNTER 2016-09-14 13:11 | Emergency (ER) | payer MEDICARE, BC ==
[2016-09-14 14:04] VITALS: BP 105/72
--- NOTE | 2016-09-14 15:02 | EDM.PDOC ---
ED HPI GENERAL MEDICAL PROBLEM - General Chief Complaint: Lower Extremity Injury/Pain Stated Complaint: SENT BY DR. BARRAZA Time Seen by Provider: 09/14/16 14:20 Source of Information: Reports: Patient History Limitations: Reports: No Limitations - History of Present Illness INITIAL COMMENTS - FREE TEXT/NARRATIVE: 85 year old female presents from [facility] for evaluation and treatment of a fracture to the left proximal tibia and fibula. Patient was seen last night for injuries from an unwitnessed fall at the correction. Patient had a head CT and left hip xray preformed. No abnormalities were identified. Patient has severe dementia and is unable to provide reliable history. Patient complained of left hip pain to correction staff, EMS and myself last night. Upon returning to the correction last night she started complaining of left knee pain. Xrays were ordered by the patient's PCP today and she was found to have a fracture of the proximal tib and fib. She was sent to the ER for further care. Patient has had several falls since June of the year. She has broken her left hip and left wrist. She also had a tripod fracture of the face. She is currently on blood thinners. Onset: Other (last night) Left Knee Pain Score (Numeric/FACES): 5 - Related Data Allergies Allergy/AdvReac Type Severity Reaction Status Date / Time No Known Allergies Allergy Verified 09/13/16 17:23 Home Meds: Home Meds Furosemide 40 mg PO DAILY 11/20/15 [History] Multivitamin [Daily Multiple Vitamin] 1 tab PO DAILY 11/20/15 [History] Omeprazole 20 mg PO DAILY 11/20/15 [History] Ondansetron HCl [Zofran] 4 mg PO QID PRN 11/20/15 [History] Potassium Chloride 10 meq PO TID 11/20/15 [History] Sennosides [Senna] 17.2 mg PO DAILY PRN 11/20/15 [History] Sertraline [Zoloft] 25 mg PO DAILY 11/20/15 [History] glipiZIDE [Glipizide ER] 2.5 mg PO DAILY 11/20/15 [History] Acetaminophen 650 mg PO TID 11/21/15 [History] Sertraline [Zoloft] 100 mg PO DAILY 12/12/15 [History] Donepezil [Aricept] 10 mg PO DAILY 06/30/16 [History] LORazepam [Ativan] 1 mg PO ACBREAKFAST 06/30/16 [History] Memantine [Namenda Xr] 14 mg PO DAILY 06/30/16 [History] Psyllium Seed (With Sugar) [Natural Fiber Lax Powder] 1 tsp PO DAILY 06/30/16 [ History] Past Medical History HEENT History: Reports: Other (See Below) Other HEENT History: dysphagia Cardiovascular History: Reports: Blood Clots/VTE/DVT Respiratory History: Reports: PE Gastrointestinal History: Reports: GI Bleed Genitourinary History: Reports: Other (See Below) Other Genitourinary History: nocturia 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: Musculoskeletal History: Reports: Other (See Below) Other Musculoskeletal History: unsteady gait, lack of coordination, transfers with barbara lift at correction Neurological History: Reports: CVA Psychiatric History: Reports: Dementia, Depression Endocrine/Metabolic History: Reports: Diabetes, Type II Other Endocrine/Metabolic History: hyercalcemia Hematologic History: Reports: Anemia, Anticoagulation Therapy Oncologic (Cancer) History: Reports: Colon - Infectious Disease History Infectious Disease History: Reports: Chicken Pox - Past Surgical History HEENT Surgical History: Reports: Other (See Below) Oncologic Surgical History: Reports: None Social & Family History - Family History Family Medical History: Noncontributory - Tobacco Use Smoking Status *Q: Never Smoker Second Hand Smoke Exposure: No - Caffeine Use Caffeine Use: Reports: None - Alcohol Use Days Per Week of Alcohol Use: 0 - Recreational Drug Use Recreational Drug Use: No Review of Systems - Review of Systems Review Of Systems: Unable To Obtain ED EXAM, GENERAL - Physical Exam Exam: See Below Exam Limited By: Altered Mental Status (patient has severe dementai) General Appearance: Alert, WD/WN, No Apparent Distress Respiratory/Chest: No Respiratory Distress, Lungs Clear, Normal Breath Sounds Cardiovascular: Normal Peripheral Pulses, Regular Rate, Rhythm, No Murmur Peripheral Pulses: 2+: Posterior Tibial (L), Posterior Tibial (R), Dorsalis Pedis (L), Dorsalis Pedis (R) Extremities: Other (swelling and increased redness to the left lower leg, proximal tibia and fibula; proximal lower leg is tender to palpation) Neurological: Alert Psychiatric: Normal Affect, Normal Mood Skin Exam: Warm, Dry Course - Vital Signs Last Recorded V/S: Last Vital Signs Temp 37.1 C 09/14/16 14:02 Pulse 95 09/14/16 14:02 Resp 17 09/14/16 14:02 BP 105/72 09/14/16 14:02 Pulse Ox 94 L 09/14/16 14:02 - Re-Assessments/Exams Free Text/Narrative Re-Assessment/Exam: 09/14/16 14:58 I was able to review the xrays obtained by the patient's PCP today. Proximal tibia and fibula fracture with minimal displacement. Spoke with Dr. Nicolas, ortho product controller. Recommended a knee immobilizer and follow- up with ortho. She is currently seeing 2 other orthopedics providers for the left hip and wrist fractures. I will have her follow-up with one of them for this tib and fib fracture. patient is currently on fentanyl and norco as needed for pain. We were able to find an attachment for the patient's wheelchair at [facility]. Plan will be for her to go back to the correction and PT will fit the wheelchair attachment and then they will apply the knee immobilizer. Patient is to be nonweight bearing on the left. Discharge instructions as documented. Departure - Departure Time of Disposition: 14:59 Disposition: Home, Self-Care 01 Condition: Fair Clinical Impression: Tibia/fibula fracture Qualifiers: Encounter type: initial encounter Fracture type: closed Laterality: left Qualified Code(s): S82.202A - Unspecified fracture of shaft of left tibia, initial encounter for closed fracture - Discharge Information Instructions: Tibial and Fibular Fracture, Adult Referrals: Karthikeyan Barraza MD [Primary Care Provider] - Adan Espino DO [Physician] - Forms: ED Department Discharge Additional Instructions: Continue with current plan of care and meds. PT today to be fitted for wheelchair attachment and knee immobilizer. Follow-up with ortho within one week. Follow-up with either Dr. Espino or Dr. Webb. Return to the ER should her symptoms change or worsen.
== END 2016-09-14 15:30 | disposition home or self-care (01) ==
LOC: JD.ED 13:11
DX: S82.832A Other fracture of upper and lower end of left fibula, initial encounter for closed fracture (principal); S82.102A Unspecified fracture of upper end of left tibia, initial encounter for closed fracture; F32.9 Major depressive disorder, single episode, unspecified; F03.90 Unspecified dementia, unspecified severity, without behavioral disturbance, psychotic disturbance, mood disturbance, and anxiety; Z86.718 Personal history of other venous thrombosis and embolism; Z86.73 Personal history of transient ischemic attack (TIA), and cerebral infarction without residual deficits; Z85.038 Personal history of other malignant neoplasm of large intestine; Z79.899 Other long term (current) drug therapy; W19.XXXA Unspecified fall, initial encounter; Y92.129 Unspecified place in nursing home as the place of occurrence of the external cause
CPT/HCPCS: 99283; 99284

== ENCOUNTER 2016-09-23 07:01 | Day surgery (SDC) | payer OTHER, MEDICARE, BC ==
[~2016-09-23 07:01] MED LIST: Lactated Ringers 1,000 ML IV SCH; Lidocaine 1%/Sod Bicarbonate in NS 8.4% 1 ML Syringe PRN; Sodium Chloride 0.9% 10 ML Syringe FLUSH PRN
[2016-09-23] MEDS ORDERED: LORazepam 1 MG Tab PO ONE (08:00)
[2016-09-23 08:57] VITALS: BP 129/81
--- NOTE | 2016-09-30 13:17 | PCM.OPNOTE ---
- General Post-Op/Procedure Note Date of Surgery/Procedure: 09/26/16 Operative Procedure(s): application of long leg cast left lower extremity Pre Op Diagnosis: left non-displaced proximal tibia fracture Post-Op Diagnosis: Same Primary Surgeon: Anjel Nicolas Art Instructor: Breana Delacruz in mLs: 0 Complications: None Condition: Good
--- NOTE | 2016-10-09 21:24 | OR ---
DATE OF OPERATION: 09/26/2016 SURGEON: Anjel Nicolas MD OPERATION PERFORMED: Application of long leg cast, left proximal tibial fracture. PREOPERATIVE DIAGNOSIS: Left nondisplaced proximal tibial fracture. POSTOPERATIVE DIAGNOSIS: Left nondisplaced proximal tibial fracture. ANESTHESIA: None. EMT B: Breana Delacruz LPN. ESTIMATED BLOOD LOSS: Not applicable. COMPLICATIONS: None. CONDITION: Stable. DESCRIPTION OF PROCEDURE: The patient was identified in the preop ulnar holding area. Proper site was marked and identified by the surgeon. At this time, it was decided secondary to the patient having breakfast this morning that she would be unable to undergo anesthesia, we decided do a long leg cast with her supine in the preop area. At this time, under cast pad layer was placed along with stockinette and a long leg cast was then applied to the left lower extremity. The patient was noted to have no significant instability, although she did have significant swelling to the lower extremity. It was well-padded and well-molded. The patient's knee was bent in roughly 20 degrees of flexion and she was in roughly 5 degrees of plantar flexion as over dorsiflexion can cause displacement of proximal tibial fractures. At once the cast had set up, the patient tolerated it well and will follow up in clinic in 1 to 2 week's time with x-ray through the cast. JORGE LUIS /[id number]
== END 2016-09-23 08:50 ==
LOC: JD.SDS 07:01
PROVIDERS: ATTEND Orthopaedic Surgery
DX: Z53.9 Procedure and treatment not carried out, unspecified reason (principal)